=== PATIENT | female | born 1985 | race Caucasian/White ===

== ENCOUNTER 2017-01-24 09:56 | Emergency (ER) | payer OTHER ==
[~2017-01-24] VITALS: Ht 157.4 cm; Wt 90.7 kg
[~2017-01-24 09:56] MED LIST: 'PARAFON FORTE500 M1 PO; AMOXICILLIN500 MG PO; AMOXICILLIN875 MG PO; BENADRYL ALLERG25 M5 PO; FLEXERIL10 MG PO; FLONASE ALLERG9.9 ML NS; HYDROCODONE BIT1 T11 PO; LIDEX 0.05% CRE15 GM T; MOTRIN800 MG PO; Motrin,Rufen800 MG PO; NAPROSYN500 MG PO; PREDNICOT20 MG PO; PRENATAL1 TA1 PO; TESSALON PERLE100 M1 PO; TOBRADEX 0.1%-0.5 ML OPH; VICODIN 5/500 505 MG PO; VICODIN ES 7501 TAB PO; ZITHROMAX Z PA250 MG PO; ZITHROMAX250 MG PO; ZOFRAN ODT4 MG SL
[2017-01-24] MEDS ORDERED: CYCLOBENZAPRINE10 MG PO (11:09)
[2017-01-24] MEDS ORDERED: PREDNISONE10 MG PO (11:09)
== END 2017-01-24 11:41 | disposition home or self-care (01) ==
LOC: ED 09:56
DX: M54.30 Sciatica, unspecified side (principal); F17.200 Nicotine dependence, unspecified, uncomplicated; Z91.040 Latex allergy status

== ENCOUNTER 2017-07-31 19:47 | Emergency (ER) | payer OTHER ==
[~2017-07-31] VITALS: Ht 157.4 cm; Wt 90.7 kg
[~2017-07-31 19:47] MED LIST changes: +CYCLOBENZAPRINE10 MG PO; +PREDNISONE10 MG PO
[2017-07-31] MEDS ORDERED: PHARMASSURE FO0.4 MG PO (19:58)
[2017-07-31 20:20] LABS: BILIRUBIN NEGATIVE (NEGATIVE); BLOOD NEGATIVE (NEGATIVE); CLARITY CLOUDY (CLEAR); COLOR YELLOW (YELLOW); GLUCOSE NEGATIVE (NEGATIVE); KETONE NEGATIVE (NEGATIVE); LEUKO ESTERASE NEGATIVE (NEGATIVE); NITRITE NEGATIVE (NEGATIVE); UROBILINOGEN 0.2 E.U./dl (0.2-1.0)
[2017-07-31 20:20] LABS: BASO # 0.1 10*3/uL (0.0-0.1); BASO % 0.5 % (0.0-1.0); EOS # 0.2 10*3/uL (0.0-0.4); EOS % 2.1 % (1.0-4.0); HEMATOCRIT 40.2 % (37.0-47.0); LYMPH % 27.2 % (27.0-41.0); MEAN CELL VOLUME 83.4 fl (81.0-99.0); MEAN CORPUSCULAR HGB CONC 32.3 g/dl (33.0-37.0); MONO # 0.7 10*3/uL (0.1-1.0); MONO % 6.2 % (3.0-9.0); NEUT % 63.8 % (47.0-73.0); PLATELET COUNT AUTOMATED 275 10*3/uL (130-400); RED BLOOD COUNT 4.82 10*6/uL (4.10-5.10); RED CELL DISTRI WIDTH 13.7 % (0-14.5); WHITE BLOOD COUNT 10.9 10*3/uL (4.8-10.8)
[2017-07-31 20:33] LABS: BACTERIA 4+
[2017-07-31 20:37] LABS: ALBUMIN 3.2 gm/dl (3.1-4.5); ALKALINE PHOSPHATASE 72 U/L (45-117); BUN 8 mg/dl (7-24); CHLORIDE 103 mmol/L (98-107); CREATININE 0.76 mg/dL (0.55-1.02); LIPASE 122 U/L (73-393); POTASSIUM 3.7 mmol/L (3.5-5.1); SGOT/AST 15 IU/L (3-35); SGPT/ALT 20 U/L (12-78); SODIUM 139 mmol/L (136-145); TOTAL PROTEIN 7.6 gm/dL (6.4-8.2)
[2017-07-31] MEDS ORDERED: CEPHALEXIN500 M1 PO (20:47)
== END 2017-07-31 20:59 | disposition home or self-care (01) ==
LOC: ED 19:47
PROVIDERS: Physician Assistant
DX: O23.31 Infections of other parts of urinary tract in pregnancy, first trimester (principal); R82.71 Bacteriuria; O26.891 Other specified pregnancy related conditions, first trimester; R10.30 Lower abdominal pain, unspecified; O99.331 Smoking (tobacco) complicating pregnancy, first trimester; F17.200 Nicotine dependence, unspecified, uncomplicated; Z3A.08 8 weeks gestation of pregnancy; Z98.890 Other specified postprocedural states; Z79.899 Other long term (current) drug therapy; Z91.040 Latex allergy status

== ENCOUNTER 2018-02-11 19:57 | Emergency (ER) | payer OTHER ==
[~2018-02-11] VITALS: Ht 154.9 cm; Wt 104.3 kg
[~2018-02-11 19:57] MED LIST changes: +CEPHALEXIN500 M1 PO; +PHARMASSURE FO0.4 MG PO
[2018-02-11] MEDS ORDERED: METFORMIN HYDR500 MG PO (20:03)
[2018-02-11] MEDS ORDERED: KEFLEX 500 MG E2 CAP PO (20:03)
[2018-02-11] MEDS ORDERED: OMEPRAZOLE D/R20 MG PO (20:03)
[2018-02-11] MEDS ORDERED: HUMULIN N100 UNIT/1 SQ (20:03)
[2018-02-11] MEDS ORDERED: PRENATAL VITAM1 EAC1 PO (20:05)
== END 2018-02-11 22:50 | disposition short-term general hospital (02) ==
LOC: ED 19:57
DX: O26.893 Other specified pregnancy related conditions, third trimester (principal); T63.441A Toxic effect of venom of bees, accidental (unintentional), initial encounter; T78.3XXA Angioneurotic edema, initial encounter; F17.200 Nicotine dependence, unspecified, uncomplicated; Z3A.34 34 weeks gestation of pregnancy; Z91.040 Latex allergy status; Z79.84 Long term (current) use of oral hypoglycemic drugs; Z79.899 Other long term (current) drug therapy; Y92.89 Other specified places as the place of occurrence of the external cause

== ENCOUNTER 2019-04-24 10:56 | Emergency (ER) | payer OTHER ==
[~2019-04-24] VITALS: Ht 157.4 cm; Wt 86.2 kg
[~2019-04-24 10:56] MED LIST changes: +HUMULIN N100 UNIT/1 SQ; +KEFLEX 500 MG E2 CAP PO; +METFORMIN HYDR500 MG PO; +OMEPRAZOLE D/R20 MG PO; +PRENATAL VITAM1 EAC1 PO
[2019-04-24] MEDS ORDERED: AMOXICILLIN500 M2 PO (12:40)
[2019-04-24] MEDS ORDERED: IBUPROFEN600 MG PO (12:40)
== END 2019-04-24 12:40 | disposition home or self-care (01) ==
LOC: ED 10:56
DX: J02.9 Acute pharyngitis, unspecified (principal); R11.10 Vomiting, unspecified; H92.03 Otalgia, bilateral; Z91.040 Latex allergy status; Z79.899 Other long term (current) drug therapy; Z79.2 Long term (current) use of antibiotics

== ENCOUNTER 2019-05-21 08:23 | Emergency (ER) | payer OTHER ==
[~2019-05-21] VITALS: Ht 157.4 cm; Wt 90.7 kg
[~2019-05-21 08:23] MED LIST changes: +AMOXICILLIN500 M2 PO; +IBUPROFEN600 MG PO
[2019-05-21 09:41] LABS: BASO % 0.4 % (0.0-1.0); EOS # 0.2 10*3/uL (0.0-0.4); EOS % 2.4 % (1.0-4.0); HEMATOCRIT 42.1 % (37.0-47.0); HEMOGLOBIN 13.1 g/dl (12.0-16.0); LYMPH # 1.7 10*3/uL (1.3-4.4); LYMPH % 20.9 % (27.0-41.0); MEAN CORPUSCULAR HGB 27.7 pg (27.0-31.0); MEAN CORPUSCULAR HGB CONC 31.1 g/dl (33.0-37.0); MEAN PLATELET VOLUME 10.3 fl (9.6-12.3); MONO # 0.4 10*3/uL (0.1-1.0); MONO % 5.3 % (3.0-9.0); NEUT # 5.6 10*3/uL (2.3-7.9); NEUT % 70.6 % (47.0-73.0); PLATELET COUNT AUTOMATED 226 10*3/uL (130-400); RED BLOOD COUNT 4.73 10*6/uL (4.10-5.10); RED CELL DISTRI WIDTH 14.1 % (0-14.5)
[2019-05-21 09:52] LABS: ALBUMIN 3.2 gm/dl (3.1-4.5); ALKALINE PHOSPHATASE 67 U/L (45-117); BUN 11 mg/dl (7-24); CHLORIDE 109 mmol/L (98-107); CREATININE 0.78 mg/dL (0.55-1.02); SGOT/AST 28 IU/L (3-35); SGPT/ALT 48 U/L (12-78); SODIUM 139 mmol/L (136-145); TOTAL PROTEIN 7.2 gm/dL (6.4-8.2)
[2019-05-21 09:54] LABS: POTASSIUM 3.9 mmol/L (3.5-5.1)
[2019-05-21 09:55] LABS: BETA-HCG, QUANT < 1.0 mIU/mL (1-3)
[2019-05-21] MEDS ORDERED: PREDNISONE10 MG PO (11:05)
[2019-05-21] MEDS ORDERED: CYCLOBENZAPRINE10 MG PO (11:05)
[2019-05-21] MEDS ORDERED: PERCOCET 5-3251 EACH PO (11:05)
== END 2019-05-21 11:20 | disposition home or self-care (01) ==
LOC: ED 08:23
PROVIDERS: Emergency Medicine
DX: M54.16 Radiculopathy, lumbar region (principal); M79.662 Pain in left lower leg; F17.200 Nicotine dependence, unspecified, uncomplicated; Z79.899 Other long term (current) drug therapy; Z91.040 Latex allergy status

== ENCOUNTER 2019-06-08 19:05 | Emergency (ER) | payer OTHER ==
[~2019-06-08] VITALS: Ht 160 cm; Wt 90.7 kg
[~2019-06-08 19:05] MED LIST changes: +PERCOCET 5-3251 EACH PO
[2019-06-08] MEDS ORDERED: NORCO 5-325 TA1 EACH PO (21:27)
[2019-06-08] MEDS ORDERED: ROBAXIN-750750 MG PO (21:27)
[2019-06-08] MEDS ORDERED: NYST SUSP PO (21:55)
== END 2019-06-08 21:35 | disposition home or self-care (01) ==
LOC: ED 19:05
DX: M54.41 Lumbago with sciatica, right side (principal); Z91.040 Latex allergy status; Z79.899 Other long term (current) drug therapy; Z79.2 Long term (current) use of antibiotics; Z79.4 Long term (current) use of insulin; Z87.891 Personal history of nicotine dependence

== ENCOUNTER → 2019-07-05 | Outpatient (CLI) | payer OTHER ==
[~2019-07-05] MED LIST changes: +NORCO 5-325 TA1 EACH PO; +NYST SUSP PO; +ROBAXIN-750750 MG PO
== END | disposition home or self-care (01) ==
LOC: MRI 10:00
DX: M54.16 Radiculopathy, lumbar region (principal); M21.371 Foot drop, right foot

== ENCOUNTER → 2019-07-20 | Outpatient (CLI) | payer OTHER ==
[2019-07-20 13:16] LABS: BASO % 0.5 % (0.0-1.0); EOS # 0.2 10*3/uL (0.0-0.4); EOS % 1.8 % (1.0-4.0); HEMATOCRIT 43.9 % (37.0-47.0); HEMOGLOBIN 13.8 g/dl (12.0-16.0); LYMPH # 2.2 10*3/uL (1.3-4.4); LYMPH % 24.9 % (27.0-41.0); MEAN CORPUSCULAR HGB CONC 31.4 g/dl (33.0-37.0); MEAN PLATELET VOLUME 9.9 fl (9.6-12.3); MONO # 0.5 10*3/uL (0.1-1.0); MONO % 5.1 % (3.0-9.0); NEUT # 5.8 10*3/uL (2.3-7.9); NEUT % 66.1 % (47.0-73.0); PLATELET COUNT AUTOMATED 255 10*3/uL (130-400); RED BLOOD COUNT 4.93 10*6/uL (4.10-5.10); RED CELL DISTRI WIDTH 14.3 % (0-14.5); WHITE BLOOD COUNT 8.8 10*3/uL (4.8-10.8)
[2019-07-20 13:19] LABS: BILIRUBIN NEGATIVE (NEGATIVE); BLOOD TRACE-INTACT (NEGATIVE); CLARITY CLEAR (CLEAR); COLOR YELLOW (YELLOW); GLUCOSE 3+ (NEGATIVE); KETONE NEGATIVE (NEGATIVE); LEUKO ESTERASE NEGATIVE (NEGATIVE); NITRITE NEGATIVE (NEGATIVE); SPECIFIC GRAVITY >= 1.030 (1.005-1.030); UROBILINOGEN 0.2 E.U./dl (0.2-1.0)
[2019-07-20 13:27] LABS: BACTERIA 1+; RBC 0-2 rbc/hpf (0-2); WBC 0-2 wbc/hpf (0-5)
[2019-07-20 13:32] LABS: INTERNATIONAL NORM RATIO 0.9 (2.0-3.5)
[2019-07-20 13:45] LABS: ALBUMIN 3.4 gm/dl (3.1-4.5); ALKALINE PHOSPHATASE 86 U/L (45-117); BUN 13 mg/dl (7-24); CHLORIDE 102 mmol/L (98-107); CREATININE 0.87 mg/dL (0.55-1.02); POTASSIUM 4.3 mmol/L (3.5-5.1); SGOT/AST 32 IU/L (3-35); SGPT/ALT 63 U/L (12-78); SODIUM 137 mmol/L (136-145)
== END | disposition home or self-care (01) ==
LOC: LAB 12:47
PROVIDERS: Neurological Surgery
DX: M51.06 Intervertebral disc disorders with myelopathy, lumbar region (principal)

== ENCOUNTER 2020-12-05 14:00 | Emergency (ER) | payer OTHER ==
[~2020-12-05] VITALS: Ht 157.4 cm; Wt 90.7 kg
[2020-12-05] MEDS ORDERED: AMOXICILLIN500 M2 PO (15:16)
== END 2020-12-05 15:32 | disposition home or self-care (01) ==
LOC: ED 14:00
DX: K08.9 Disorder of teeth and supporting structures, unspecified (principal); F17.200 Nicotine dependence, unspecified, uncomplicated; Z91.040 Latex allergy status; Z79.2 Long term (current) use of antibiotics; Z79.899 Other long term (current) drug therapy; Z79.4 Long term (current) use of insulin; Z98.890 Other specified postprocedural states

== ENCOUNTER → 2021-01-16 | Outpatient (CLI) | payer OTHER ==
[2021-01-16 11:19] LABS: BASO % 0.2 % (0.0-1.0); EOS # 0.1 10*3/uL (0.0-0.4); EOS % 0.7 % (1.0-4.0); HEMATOCRIT 37.2 % (37.0-47.0); LYMPH # 1.8 10*3/uL (1.3-4.4); LYMPH % 17.5 % (27.0-41.0); MEAN CELL VOLUME 83.6 fl (81.0-99.0); MEAN CORPUSCULAR HGB 27.2 pg (27.0-31.0); MEAN CORPUSCULAR HGB CONC 32.5 g/dl (33.0-37.0); MONO # 0.4 10*3/uL (0.1-1.0); MONO % 3.7 % (3.0-9.0); NEUT # 7.8 10*3/uL (2.3-7.9); NEUT % 77.4 % (47.0-73.0); PLATELET COUNT AUTOMATED 235 10*3/uL (130-400); RED BLOOD COUNT 4.45 10*6/uL (4.10-5.10); RED CELL DISTRI WIDTH 14.5 % (0-14.5); WHITE BLOOD COUNT 10.1 10*3/uL (4.8-10.8)
[2021-01-16 11:39] LABS: ALBUMIN 2.7 gm/dl (3.1-4.5); ALKALINE PHOSPHATASE 83 U/L (45-117); BUN 6 mg/dl (7-24); CHLORIDE 107 mmol/L (98-107); CREATININE 0.47 mg/dL (0.55-1.02); POTASSIUM 3.4 mmol/L (3.5-5.1); SGOT/AST 5 IU/L (3-35); SGPT/ALT 10 U/L (12-78); SODIUM 137 mmol/L (136-145); TOTAL PROTEIN 7.3 gm/dL (6.4-8.2)
[2021-01-16 11:40] LABS: LDH 103 U/L (84-246); URIC ACID 4.8 mg/dL (2.6-6.0)
[2021-01-17 05:06] LABS: HEPATITIS B SURFACE AG Negative (Negative)
[2021-01-19 15:39] LABS: HEMOGLOBIN A 97.4 % (96.4-98.8); HEMOGLOBIN A2 2.6 % (1.8-3.2)
== END | disposition home or self-care (01) ==
LOC: LAB 10:26
PROVIDERS: ATTEND Nurse Practitioner
DX: O09.899 Supervision of other high risk pregnancies, unspecified trimester (principal); Z3A.18 18 weeks gestation of pregnancy; Z86.32 Personal history of gestational diabetes

== ENCOUNTER → 2021-01-26 | Outpatient (CLI) | payer OTHER | END | disposition home or self-care (01) | LOC: LAB 06:59 | PROVIDERS: ATTEND Nurse Practitioner | DX: O99.810 Abnormal glucose complicating pregnancy (principal); Z3A.19 19 weeks gestation of pregnancy ==

== ENCOUNTER 2021-05-05 09:46 | Emergency (ER) | payer OTHER ==
[~2021-05-05] VITALS: Wt 98.0 kg
[2021-05-05] MEDS ORDERED: CLEOCIN HCL300 MG PO (11:37)
== END 2021-05-05 11:44 | disposition home or self-care (01) ==
LOC: ED 09:46
DX: O99.613 Diseases of the digestive system complicating pregnancy, third trimester (principal); K92.89 Other specified diseases of the digestive system; K04.7 Periapical abscess without sinus; Z3A.35 35 weeks gestation of pregnancy; F17.200 Nicotine dependence, unspecified, uncomplicated; Z91.040 Latex allergy status; Z79.899 Other long term (current) drug therapy

== ENCOUNTER 2021-08-05 09:22 | Emergency (ER) | payer OTHER ==
[~2021-08-05] VITALS: Wt 90.7 kg
[~2021-08-05 09:22] MED LIST changes: +CLEOCIN HCL300 MG PO
[2021-08-05] MEDS ORDERED: AMOXICILLIN500 M3 PO (09:59)
== END 2021-08-05 10:05 | disposition home or self-care (01) ==
LOC: ED 09:22
DX: K04.7 Periapical abscess without sinus (principal); F17.200 Nicotine dependence, unspecified, uncomplicated; Z91.040 Latex allergy status; Z98.890 Other specified postprocedural states

== ENCOUNTER 2021-12-07 20:34 | Emergency (ER) | payer OTHER ==
[~2021-12-07] VITALS: Wt 90.7 kg
[~2021-12-07 20:34] MED LIST changes: +AMOXICILLIN500 M3 PO
[2021-12-07] MEDS ORDERED: CEPHALEXIN500 M1 PO (23:34)
[2021-12-07] MEDS ORDERED: SEPTDS PO (23:34)
== END 2021-12-07 23:30 | disposition left against medical advice (07) ==
LOC: ED 20:34
DX: L08.9 Local infection of the skin and subcutaneous tissue, unspecified (principal); Z53.20 Procedure and treatment not carried out because of patient's decision for unspecified reasons

== ENCOUNTER 2023-10-07 16:42 | Emergency (ER) | payer OTHER ==
[~2023-10-07] VITALS: Ht 157.4 cm; Wt 90.7 kg
[~2023-10-07 16:42] MED LIST changes: +SEPTDS PO
[2023-10-07] MEDS ORDERED: AMOX-CLAV 875-1 EACH PO (17:08)
[2023-10-07] MEDS ORDERED: Amoxicillin/Clavulanate Pota 875 MG TAB PO ONE (17:10)
== END 2023-10-07 17:15 | disposition home or self-care (01) ==
LOC: ED 16:42
DX: J02.0 Streptococcal pharyngitis (principal); Z91.040 Latex allergy status; Z98.890 Other specified postprocedural states; F17.200 Nicotine dependence, unspecified, uncomplicated

== ENCOUNTER 2023-12-09 10:34 | Emergency (ER) | payer OTHER ==
[~2023-12-09] VITALS: Ht 157.4 cm; Wt 81.6 kg
[~2023-12-09 10:34] MED LIST changes: +AMOX-CLAV 875-1 EACH PO
[2023-12-09] MEDS ORDERED: Ketorolac Tromethamine 30 MG/ML VIAL IM ONE (11:05)
[2023-12-09] MEDS ORDERED: AMOXICILLIN500 M3 PO (12:54)
== END 2023-12-09 12:58 | disposition home or self-care (01) ==
LOC: ED 10:34
DX: J02.9 Acute pharyngitis, unspecified (principal); F17.200 Nicotine dependence, unspecified, uncomplicated; Z91.040 Latex allergy status; Z98.890 Other specified postprocedural states

== ENCOUNTER 2024-02-16 16:29 | Emergency (ER) | payer OTHER ==
[~2024-02-16] VITALS: Ht 157.4 cm; Wt 81.6 kg
[2024-02-16] MEDS ORDERED: ACETAMINOPHEN 325 MG TAB PO ONE (16:55)
[2024-02-16] MEDS ORDERED: SODIUM CHLORIDE 0.9% 1,000 ML IV SCH (16:55)
[2024-02-16 17:25] LABS: BASO % 0.3 % (0.0-1.0); EOS # 0.1 10*3/uL (0.0-0.4); EOS % 0.8 % (1.0-4.0); HEMATOCRIT 39.5 % (37.0-47.0); LYMPH % 8.2 % (27.0-41.0); MEAN CELL VOLUME 84.2 fl (81.0-99.0); MEAN CORPUSCULAR HGB 27.1 pg (27.0-31.0); MEAN CORPUSCULAR HGB CONC 32.2 g/dl (33.0-37.0); MEAN PLATELET VOLUME 9.9 fl (9.6-12.3); MONO # 0.6 10*3/uL (0.1-1.0); MONO % 5.2 % (3.0-9.0); NEUT # 10.1 10*3/uL (2.3-7.9); PLATELET COUNT AUTOMATED 184 10*3/uL (130-400); RED BLOOD COUNT 4.69 10*6/uL (4.10-5.10); RED CELL DISTRI WIDTH 14.3 % (0-14.5); WHITE BLOOD COUNT 11.9 10*3/uL (4.8-10.8)
[2024-02-16 17:42] LABS: ALKALINE PHOSPHATASE 74 U/L (46-116); BUN 6 mg/dl (9-23); CHLORIDE 102 mmol/L (98-107); POTASSIUM 3.3 mmol/L (3.4-5.1); SGPT/ALT 12 U/L (5-49); TOTAL PROTEIN 7.4 gm/dL (6.0-8.0)
[2024-02-16] MEDS ORDERED: POTASSIUM CHLORIDE 20 MEQ TAB PO ONE (17:50)
[2024-02-16] MEDS ORDERED: Amoxicillin/Clavulanate Pota 875 MG TAB PO ONE (17:55)
[2024-02-16] MEDS ORDERED: AMOX-CLAV 875-1 EACH PO (19:08)
== END 2024-02-16 19:12 | disposition home or self-care (01) ==
LOC: ED 16:29
PROVIDERS: Nurse Practitioner
DX: J02.0 Streptococcal pharyngitis (principal); H92.02 Otalgia, left ear; F17.200 Nicotine dependence, unspecified, uncomplicated; Z91.040 Latex allergy status; Z98.890 Other specified postprocedural states

== ENCOUNTER 2024-12-21 18:29 | Emergency (ER) | payer OTHER ==
[~2024-12-21] VITALS: Ht 157.4 cm; Wt 81.6 kg
[2024-12-21] MEDS ORDERED: AMOX-CLAV 875-1 EACH PO (18:45)
[2024-12-21] MEDS ORDERED: Amoxicillin/Clavulanate Pota 875 MG TAB PO ONE (18:45)
[2024-12-21] MEDS ORDERED: Motrin,Rufen800 MG PO (18:49)
== END 2024-12-21 19:18 | disposition home or self-care (01) ==
LOC: ED 18:29
DX: K08.89 Other specified disorders of teeth and supporting structures (principal); F17.200 Nicotine dependence, unspecified, uncomplicated; Z79.899 Other long term (current) drug therapy; Z91.040 Latex allergy status; Z98.890 Other specified postprocedural states

== ENCOUNTER 2025-05-27 22:32 | Emergency (ER) | payer OTHER ==
[~2025-05-27] VITALS: Ht 157.4 cm; Wt 86.2 kg
[2025-05-27] MEDS ORDERED: PENICILLIN VK500 MG PO (22:44)
[2025-05-27] MEDS ORDERED: Motrin,Rufen800 MG PO (22:45)
[2025-05-27] MEDS ORDERED: Acetaminophen/Oxycodone 5 MG/325 MG TABLET PO ONE (22:50)
[2025-05-27] MEDS ORDERED: PENICILLIN V POTASSIUM 500 MG TAB PO ONE (22:50)
== END 2025-05-27 22:55 | disposition home or self-care (01) ==
LOC: ED 22:32
DX: K04.7 Periapical abscess without sinus (principal); Z98.890 Other specified postprocedural states; Z91.040 Latex allergy status